=== PATIENT | female | born 1965 | race Caucasian/White ===

== ENCOUNTER 2018-03-11 16:33 | Emergency (ER) | payer BC ==
[~2018-03-11] VITALS: Ht 162.6 cm; Wt 42.2 kg
--- NOTE | 2018-03-11 16:45 | NUR ---
PATIENT WALKED INTO ER C/O PALPITATION AND NON RADIATING CP THAT STARTED 1HR PRIOR TO ARRIVAL
[2018-03-11] MEDS ORDERED: ADENOSINE 6 MG/2 ML SYR IV ONE (16:48)
[2018-03-11] MEDS: ADENOSINE 6 MG/2 ML SYR IV ONE (16:49)
--- NOTE | 2018-03-11 16:57 | NUR ---
PT AND PT's DO NOT REMEMBER HOME MEDICATION NAMES. PT'S IS GOING TO BRING MEDICATION LIST LATER.
[2018-03-11] MEDS ORDERED: NITROGLYCERIN 0.4 MG/TAB BOTTLE SL ONE (17:00)
[2018-03-11] MEDS ORDERED: ASPIRIN 325 MG TABLET ONE (17:00)
[2018-03-11] MEDS: ASPIRIN 325 MG TABLET PO ONE (17:02)
[2018-03-11] MEDS: NITROGLYCERIN 0.4 MG/TAB BOTTLE SL ONE (17:03)
--- NOTE | 2018-03-11 17:05 | NUR ---
AFTER 1ST DOSE OF NITRO PATIENT STATES PAIN IS 0/10
[2018-03-11] MEDS: IV NORMAL SALINE 1000 ML BAG IV ONE (17:22)
[2018-03-11 17:32] LABS: BASOPHILS % (AUTO) 0.7 % (0.0-2.0); EOSINOPHILS # (AUTO) 0.1 K/uL (0.0-0.7); EOSINOPHILS % (AUTO) 1.3 % (0.0-7.0); HEMATOCRIT 39.7 % (31.2-41.9); HEMOGLOBIN 13.5 g/dL (10.9-14.3); LYMPHOCYTES # (AUTO) 1.5 K/uL (20.0-40.0); LYMPHOCYTES % (AUTO) 22.2 % (20.5-51.5); MEAN CORPUSCULAR HEMOGLOBIN 31.1 uug (24.7-32.8); MEAN CORPUSCULAR HGB CONC 34 g/dL (32.3-35.6); MEAN CORPUSCULAR VOLUME 91.5 fL (75.5-95.3); MONOCYTES # (AUTO) 0.5 K/uL (2.0-10.0); MONOCYTES % (AUTO) 7.9 % (0.0-11.0); NEUTROPHILS # (AUTO) 4.6 K/uL (1.8-8.9); NEUTROPHILS % (AUTO) 67.9 % (38.5-71.5); PLATELET COUNT (AUTO) 211 K/uL (179-408); RED BLOOD CELL COUNT(AUTO) 4.34 MIL/uL (3.63-4.92); WHITE BLOOD COUNT (AUTO) 6.7 K/uL (3.8-11.8)
[2018-03-11 17:42] LABS: CREATININE 0.7 mg/dL (0.6-1.3); POTASSIUM 3.6 mmol/L (3.5-5.1)
[2018-03-11 17:55] LABS: TOTAL PROTEIN, SERUM 6.7 g/dL (6.4-8.2)
[2018-03-11 18:17] LABS: BILIRUBIN,DIRECT 0.3 mg/dL (0.0-0.2); BILIRUBIN,TOTAL 0.3 mg/dL (0.2-1.0)
--- NOTE | 2018-03-11 18:35 | NUR ---
IV removed. Catheter intact and site benign. Pressure and 4x4 gauze applied to site. No bleeding noted.
[2018-03-11] MEDS ORDERED: ATENOLOL 25 MG TABLET ONE (18:40)
[2018-03-11] MEDS: ATENOLOL 25 MG TABLET PO ONE (18:41)
[2018-03-11 18:43] VITALS: BP 137/85
--- NOTE | 2018-03-11 18:46 | NUR ---
Patient does not wish to proceed with medical care recommended by Dr. Robert CHARLES ). Patient given information related to possible complications, up to and including , which could occur as a result of leaving the hospital at this time. Patient verbalizes understanding of risks involved due to leaving against medical advice. Patient has signed AMA form.
== END 2018-03-11 18:46 | disposition left against medical advice (07) ==
LOC: ER 16:35
DX: I47.1 Supraventricular tachycardia (principal); E05.90 Thyrotoxicosis, unspecified without thyrotoxic crisis or storm; Z88.5 Allergy status to narcotic agent; Z88.8 Allergy status to other drugs, medicaments and biological substances
CPT/HCPCS: 36415; 70030-TC; 71045; 84443; 85025; 85730; 93005; A4663; J0153; J7030